=== PATIENT | female | born 2000 | race Two or more races ===

== ENCOUNTER → 2023-10-20 | Outpatient (REF) | payer BC ==
[2023-10-20 16:09] LABS: CHLAMYDIA DNA AMPLIFICATION NEGATIVE (NEGATIVE); GC DNA AMPLIFICATION NEGATIVE (NEGATIVE)
== END ==
LOC: M SFHCWAGY 13:19
PROVIDERS: ATTEND Nurse Practitioner Family
DX: Z12.4 Encounter for screening for malignant neoplasm of cervix (principal); Z11.51 Encounter for screening for human papillomavirus (HPV); N73.9 Female pelvic inflammatory disease, unspecified

== ENCOUNTER → 2023-11-07 | Outpatient (REF) | payer BC | LOC: M PLALAB 08:21 | PROVIDERS: ATTEND Nurse Practitioner Family | DX: N73.9 Female pelvic inflammatory disease, unspecified (principal); R87.615 Unsatisfactory cytologic smear of cervix; Z12.4 Encounter for screening for malignant neoplasm of cervix | CPT/HCPCS: 87070; G0123 ==

== ENCOUNTER → 2024-04-20 | Outpatient (REF) | payer BC | LOC: M SFHCWAGY 10:31 | PROVIDERS: ATTEND Nurse Practitioner Family | DX: Z12.4 Encounter for screening for malignant neoplasm of cervix (principal); Z01.419 Encounter for gynecological examination (general) (routine) without abnormal findings; Z77.9 Other contact with and (suspected) exposures hazardous to health ==

== ENCOUNTER → 2025-01-09 | Outpatient (CLI) | payer BC, OTHER | LOC: M WHC 07:50 | PROVIDERS: ATTEND Nurse Practitioner Family | DX: N63.32 Unspecified lump in axillary tail of the left breast (principal); N63.31 Unspecified lump in axillary tail of the right breast ==

== ENCOUNTER → 2025-09-27 | Outpatient (REF) | payer OTHER | LOC: M LAB REF 17:27 | PROVIDERS: ATTEND Physician Assistant | DX: B34.9 Viral infection, unspecified (principal) ==